=== PATIENT | female | born 1945 | race Caucasian/White ===

== ENCOUNTER → 2016-11-30 | Outpatient (CLI) | payer OTHER ==
--- NOTE | 2016-11-30 11:20 | DIAGNOSTIC IMAGING REPORT ---
THYROID ULTRASOUND CLINICAL HISTORY: Multiple thyroid nodules. COMPARISON STUDY: Thyroid ultrasound December 16, 2015 and ultrasound-guided fine-needle aspiration January 30, 2016. TECHNIQUE: Sonography of the thyroid gland was performed. FINDINGS: The right thyroid lobe measures 4.9 x 1.9 x 2.6 cm and the left measures 5.7 x 1.6 x 2.7 cm. Numerous circumscribed thyroid nodules are again noted. The largest nodule is a right mid pole nodule that measures 2.1 x 1.5 x 1.9 cm. This nodule was previously biopsied and is similar in size to exam of December 16, 2015. A few additional right lobe thyroid nodules are similar to prior exam as well. Multiple left lobe nodules are noted, the largest of which is a 1.8 x 0.8 x 1.2 cm hypoechoic circumscribed nodule. This is also similar to prior exam was previously biopsied. IMPRESSION: No significant change in multiple thyroid nodules since exam of December 16, 2015, including the 2 previously biopsied nodules. Electronically signed by: Champ Chau M.D. 11/30/2016 11:19 AM Dictated Date/Time: 11/30/2016 11:16 AM
== END | disposition home or self-care (01) ==
LOC: C.ULTR 10:20
PROVIDERS: ATTEND Internal Medicine Endocrinology, Diabetes & Metabolism
DX: E04.2 Nontoxic multinodular goiter (principal)